=== PATIENT | female | born 1960 | race Caucasian/White ===

== ENCOUNTER 2023-05-07 05:55 | Day surgery (SDC) | payer MEDICAID ==
[2023-05-02 10:27] LABS: BASOPHILS % (AUTO) 0.6 % (0-1); EOSINOPHILS % (AUTO) 0.3 % (0-6); LYMPHOCYTES % (AUTO) 20.5 % (21-51); MEAN CORPUSCULAR HEMOGLOBIN 32.8 PG (27.0-31.0); MEAN CORPUSCULAR HGB CONC 33.9 g/dL (33.0-36.5); MEAN CORPUSCULAR VOLUME 96.7 FL (78-98); MEAN PLATELET VOLUME 7.6 FL (7.4-10.4); MONOCYTES # (AUTO) 0.3 X10'3 (0-0.9); MONOCYTES % (AUTO) 6.5 % (2-12); NEUTROPHILS # (AUTO) 3.7 X10'3 (1.8-7.7); NEUTROPHILS % (AUTO) 72.1 % (42-75); PRE OP HEMATOCRIT 47.1 % (35.0-45.0); PRE OP PLATELET COUNT 250 X10'3 (140-440); PRE OP WHITE BLOOD COUNT 5.1 10'3 (4.8-10.8); RED BLOOD COUNT 4.87 X10'6 (4.20-5.60); RED CELL DISTRIBUTION WIDTH 12.9 % (11.5-14.5)
[2023-05-02 10:31] LABS: BILIRUBIN,URINE NEGATIVE (Neg); CLARITY,URINE CLEAR (Clear); COLOR,URINE STRAW (Yellow); GLUCOSE, URINE NEGATIVE (Neg); KETONES,URINE NEGATIVE (Neg); LEUKOCYTE ESTERASE ,URINE NEGATIVE (Neg); NITRITES, URINE NEGATIVE (Neg); OCCULT BLOOD,URINE TRACE-INTACT (Neg); PH,URINE 5.5 (4.8-8.0); PROTEIN,URINE NEGATIVE (Neg); UROBILINOGEN,URINE 0.2 E.U/dL (0.2-1.0)
[2023-05-02 10:33] LABS: UA COLLECTION TYPE CLN CATCH MIDSTREAM
[2023-05-02 10:39] LABS: ALBUMIN/GLOBULIN RATIO 1.2 (1.1-1.5); ALKALINE PHOSPHATASE 65 IU/L (46-116); BLOOD UREA NITROGEN 7 MG/DL (7-18); BUN/CREATININE RATIO 8.1 (10.0-20.0); CALCIUM 9.2 MG/DL (8.5-10.1); CHLORIDE 101 MMOL/L (99-107); CREATININE 0.86 MG/DL (0.40-0.90); PRE OP ALT 20 U/L (30-65); PRE OP ANION GAP 10 (8-16); PRE OP AST 20 U/L (10-37); PRE OP BILIRUB, TOTAL 0.5 MG/DL (0.0-1.0); PRE OP GLUCOSE 116 MG/DL (70-104); PRE OP POTASSIUM 4.3 MMOL/L (3.4-5.1); PRE OP SODIUM 139 MMOL/L (135-145); TOTAL PROTEIN 7.4 G/DL (6.4-8.2); eGFR 66 ML/MIN
[2023-05-02 10:43] LABS: BACTERIA,URINE NONE SEEN /HPF (Neg); MUCUS STRANDS NONE SEEN /LPF (Neg); RBC,URINE 0-2 /HPF (0-2); SQUAMOUS EPITHELIAL CELL,UR NONE SEEN /LPF (FEW); WBC,URINE 0-4 /HPF (0-4)
[2023-05-07] VITALS (8 sets, daily range): BP systolic 138–162; BP diastolic 76–102; PULSE 87–98; RESP 14–26; TEMP 98; O2SAT 95–100
[~2023-05-07] VITALS: Ht 158.8 cm; Wt 49.2 kg
[~2023-05-07 05:55] MED LIST: ALBU18HF2 INH; LEVO100T PO; cefazolin 2gm/D5W 100mL 100 ML IV ONE; famotidine 20mg tablet PO ONE; ringers solution, lacted 1,000 ML IV SCH
[2023-05-07] MEDS ORDERED: LIDOcaine 1% w/EPI 1:100,000 inj. MDV 50 ML VIAL ONE (08:17)
[2023-05-07] MEDS ORDERED: BUPIVAcaine/PF 2.5 mg/ml (0.25%) 30ml vial ONE (08:17)
[2023-05-07] MEDS ORDERED: midazolam 1 mg/ML 2ml injection ONE (08:51)
[2023-05-07] MEDS ORDERED: rocuronium 10mg/ml inj IV ONE (08:51)
[2023-05-07] MEDS ORDERED: fentaNYL/PF 50MCG/1 ML 2ML syringe ONE (08:51)
[2023-05-07] MEDS ORDERED: propofol inj 20 ML IV ONE (08:51)
[2023-05-07] MEDS ORDERED: morphine 4 MG/ML inj SYRINge IV PRN (08:55)
[2023-05-07] MEDS ORDERED: meperidine/PF 25mg/ml syringe IV PRN ×3 (08:55)
[2023-05-07] MEDS ORDERED: morphine 2 MG/ML inj. syringe IV PRN (08:55)
[2023-05-07] MEDS ORDERED: ringers solution, lacted 1,000 ML IV SCH (08:55)
[2023-05-07] MEDS ORDERED: proCHLORperazine 10 MG/2 ml inj IV PRN (08:55)
[2023-05-07] MEDS ORDERED: ondansetron/PF 4mg/2ml inj IV PRN (08:55)
[2023-05-07] MEDS ORDERED: sevoflurane 250ml liquid IH ONE (09:06)
[2023-05-07] MEDS ORDERED: dexamethasone sod phosphate 4mg/ml inj. ONE (09:25)
[2023-05-07] MEDS ORDERED: ondansetron/PF 4mg/2ml inj ONE (09:45)
[2023-05-07] MEDS ORDERED: glycopyrrolate 0.2mg/ml inj ONE (09:58)
[2023-05-07] MEDS ORDERED: neostigmine methylsulfate 1 MG/ML 10ml vial ONE (09:58)
--- NOTE | 2023-05-07 10:10 | NUR ---
PATIENT ARRIVES FROM OR VIA GURNEY. DENIES PAIN. RESPONDS TO VERBAL COMMANDS. VSS ON 10L MASK 100% SATURATION. POSTERIOR BACK WITH ISLAND DRESSING CDI. LR INFUSING VIA LEFT WRIST 20G PIV.
[2023-05-07] MEDS ORDERED: oxyCODONE IR 5mg (immed. release) tablet PO STA (10:38)
--- NOTE | 2023-05-07 11:00 | NUR ---
PATIENT MEETS DISCHARGE CRITERIA FROM RECOVERY. PAIN MANAGEABLE. VSS. DRESSING WITH PEA SIZED SANGENOUS DRAINAGE ON RIGHT SHOULDER ISLAND DRESSING. DISCHARGE INSTRUCTIONS REVIEWED WITH PATIENT AND PATIENT'S SON, CLARA. IV REMOVED AND PLACED PATIENT IN WHEELCHAIR WITH ALL BELONGINGS WHERE SHE WAS TRANSPORTED DOWN AND DISCHARGED INTO THE CARE OF HER SON, CLARA.
== END 2023-05-07 11:00 | disposition home or self-care (01) ==
LOC: PAS 05:55
PROVIDERS: ATTEND Surgery
DX: D03.59 Melanoma in situ of other part of trunk (principal); J45.909 Unspecified asthma, uncomplicated; G47.30 Sleep apnea, unspecified; Z72.89 Other problems related to lifestyle; Z87.891 Personal history of nicotine dependence; Z98.890 Other specified postprocedural states; Z79.899 Other long term (current) drug therapy; Z82.5 Family history of asthma and other chronic lower respiratory diseases; Z82.49 Family history of ischemic heart disease and other diseases of the circulatory system
CPT/HCPCS: 14000; 36415; 80053; 81001; 82948; 85025; 93005; J0690; J1100; J2250; J2405; J2704; J2710; J3010; J3490; J7030; J7120; Z7506; Z7508; Z7512; A4618; A7000

== ENCOUNTER 2025-08-19 14:40 | Emergency (ER) | payer MEDICARE, OTHER ==
[~2025-08-19] VITALS: Ht 157.5 cm; Wt 49.0 kg
[~2025-08-19 14:40] MED LIST changes: -cefazolin 2gm/D5W 100mL 100 ML IV ONE; -famotidine 20mg tablet PO ONE; -ringers solution, lacted 1,000 ML IV SCH
--- NOTE | 2025-08-19 15:58 | RADIOLOGY REPORT ---
CLINICAL INDICATION: HIP PAIN TECHNIQUE: DI HIP UNILATERAL 2-3 VIEWS COMPARISON: None FINDINGS/IMPRESSION: : There is no evidence of acute fracture or dislocation. Soft tissues are unremarkable. 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
[2025-08-19] MEDS: ketorolac trometh 15mg/ml vial 15 MG/ML ML IM ONE (16:30)
--- NOTE | 2025-08-19 17:12 | RADIOLOGY REPORT ---
EXAM: CT CT ABDOMEN PELVIS INDICATION: flank pain TECHNIQUE: Volumetric multidetector CT images of the abdomen and pelvis were obtained without contrast. All CT scans at this facility use dose modulation, iterative reconstruction, and/or weight based dosing when appropriate to reduce radiation dose to as low as reasonably achievable. COMPARISON: None FINDINGS: [LOWER CHEST]: Complete collapse of the left lower lobe. Centrilobular emphysema of the right lower lobe. Question partial collapse / atelectasis in the right middle lobe. The cardiac size is normal without pericardial effusion. [LIVER]: Normal hepatic size without suspicious focal lesion. Presumed hypoattenuating cysts in hepatic segment 4A/ 4B. Additional presumed hepatic cyst along the gallbladder fossa. [GALLBLADDER AND BILIARY TREE]: No cholelithiasis. [SPLEEN]: Unremarkable. [PANCREAS]: Unremarkable. [ADRENAL GLANDS]: Left adrenal gland indeterminate nodule measuring 4.6 x 3.9 cm. [KIDNEYS]: No hydronephrosis. No nephroureterolithiasis. No suspicious focal lesion. [BLADDER]: Unremarkable for the degree distention. [REPRODUCTIVE ORGANS]: Unremarkable. [BOWEL/MESENTERY]: Stomach is normal. No CT evidence of bowel obstruction. [ASCITES]: Absent [LYMPHADENOPATHY]: No pathologically enlarged lymph nodes by CT size criteria [VASCULATURE]: No aneurysmal dilatation. [ABDOMINAL WALL]: Unremarkable. [MUSCULOSKELETAL]: No acute fracture or aggressive focal osseous lesion. Multifocal degenerative change of the visualized spine. IMPRESSION: 1. No hydronephrosis or nephroureterolithiasis. 2. Indeterminate left adrenal gland nodule measuring up to 4.6 cm. 3. Complete collapse of the left lower lobe. 4. Centrilobular emphysema of the right lower lobe.
[2025-08-19] MEDS ORDERED: HYDR-3965 PO (17:34)
[2025-08-19] MEDS ORDERED: TIZA4TAB11 PO (17:34)
[2025-08-19] MEDS ORDERED: IBUP-1984 PO (17:34)
--- NOTE | 2025-08-19 17:36 | Physician Documentation ---
History of Present Illness ~ Chief Complaint: Hip pain Stated Complaint: R HIP PAIN Time Seen by MD: 15:11 HPI 65-year-old female who presents to the emergency department with complaints of right flank lower back pain that is nonradicular. She has had sciatica in the past but reports his pain to be different. Denies urinary symptoms, nausea or vomiting or recent illness injury infection. Pain is located to the right lower flank. Medication Reconciliation Allergies: Coded Allergies: No Known Drug Allergies (Verified Allergy, Unknown, 08/19/25) Scheduled Albuterol Sulfate (Ventolin Hfa), 2 PUFFS INH Q4HPRN, (Reported) Ibuprofen* (Motrin*), 1 TAB PO Q8H Levothyroxine Sodium (Synthroid), 1 TAB PO DAILY, (Reported) Tizanidine Hcl (Zanaflex), 1 TAB PO Q8H Scheduled PRN Hydrocodone Bit/Acetaminophen 5/325 MG ([place] 5/325 MG), 1 TAB PO Q4-6 hours PRN for pain Review of Systems All Other Systems at this time: Reviewed and Negative Genitourinary: Reports: see HPI Physical Exam Physical Exam Vital Signs: RN Vital Signs have been reviewed: Yes, Temperature: 98.3, Source: Oral, Heart Rate: 95, Respiratory Rate: 18, BP: 147/60, Pulse Oximetry: 95, Weight: 49.000 Oxygen Flow Rate: 0 General Appearance: alert, WD/WN, moderate distress EENT: PERRL/EOMI Neck: non-tender Respiratory: lungs clear Chest: no accessory muscle use Cardiovascular: normal peripheral pulses BacK: CVA tenderness (R), decreased range of motion, muscle spasm, + straight leg raise; No: vertebral tenderness Extremities: no evidence of injury Sensory/Motor: sensation grossly intact Neurologic: oriented x4 Psychiatric: normal mood/affect Skin: normal color Progress Results/Orders Results/Orders Orders - ISAC MURPHY PAC Ct Abdomen Pelvis (08/19/25 16:42) Completed Orders - ISAC MURPHY PAC Ct Abdomen Pelvis (08/19/25 16:42) Ketorolac Trometh 15mg/Ml Vial (Toradol (08/19/25 16:15) Vital Signs 08/19/25 08/19/25 08/19/25 08/19/25 15:07 16:30 17:24 17:45 Temp 98.3 97.4 Pulse 95 88 Resp 18 22 18 16 B/P (MAP) 147/60 161/82 Pulse Ox 95 95 O2 Flow Rate 0 Medical Decision Making Additional information obtaine: N/A Findings Examination history warrants x-ray imaging of the hip which shows chronic degenerative changes without acute fractures or and/or joint effusion. We will go and a obtain CT imaging of the abdomen and pelvis without contrast to evaluate for renal lithiasis and/or other unforeseen bony pathologies. No labs obtained today is he has no urinary complaints and no clinical suspicion for acute kidney injury. CT imaging reassuring. Patient pain and dressed in the emergency department she was discharged with a aftercare instructions in pain management. Taken off work for a couple of days and recommend reassessment on Friday or Friday her primary care physician's office. Unclear if this pain represents musculoskeletal pain specifically that of spasm or other unforeseen pathologies. CT though however again is pretty reassuring. Discharged without suspicion of infectious etiology. Differential Dx:Considerations: DJD, Fracture, HNP, Musculoskeletal pain, Pancreatitis, Pyelonephritis, Strain, Urinary obstruction, Urolithiasis, Urinary tract infection Departure Disposition: HOME / SELF CARE / HOMELESS Impression: Primary Impression: Hip pain Qualified Codes: M25.551 - Pain in right hip Additional Impression: Flank pain Qualified Codes: R10.A1 - Flank pain, right side Condition: Stable Additional Instructions: Your CT imaging and x-ray are reassuring. Please begin medications as directed. No work until Friday make follow up appointment with your doctor on Friday. Have a [facility] and return as needed. Departure Forms: Excuse form Work or School Excused From: Work Excuse beginning now through the following date: Aug 23, 2025 Referrals: NO PRIMARY CARE PROVIDER (PCP) Prescriptions Hydrocodone Bit/Acetaminophen 5/325 MG ([place] 5/325 MG) 5 Mg/325 Mg Tablet 1 TAB PO Q4-6 hours PRN for pain, #20 TAB Prov: ISAC MURPHY PAC 08/19/25 Tizanidine Hcl (ZANAFLEX) 4 Mg Tablet 1 TAB PO Q8H for 10 Days, #30 TAB 0 Refills Prov: ISAC MURPHY PAC 08/19/25 Ibuprofen* (Motrin*) 400 Mg Tablet 1 TAB PO Q8H for pain or fever for 10 Days, #30 TAB Prov: ISAC MURPHY PAC 08/19/25 Education Educated: Patient Educated regarding: diagnosis, treatment, prognosis, need for follow up Signature Scribe Signature: . Attestation: . ISAC MURPHY PAC Aug 19, 2025 17:35
[2025-08-19 17:45] VITALS: BP 161/82; PULSE 88; RESP 16; TEMP 97.4; O2SAT 95
== END 2025-08-19 17:47 | disposition home or self-care (01) ==
LOC: ER 14:41
DX: M25.551 Pain in right hip (principal); R10.A1 Flank pain, right side; Z79.899 Other long term (current) drug therapy
CPT/HCPCS: 73502; 74176; 96372; 99285; J1885